=== PATIENT | female | born 1995 | race Caucasian/White ===

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

== ENCOUNTER 2017-03-08 17:43 | Emergency (ER) | payer BC ==
--- NOTE | 2017-03-08 17:58 | EDM.PDOC ---
ED HPI GENERAL MEDICAL PROBLEM - General Stated Complaint: ABDOMINAL PAIN Time Seen by Provider: 03/08/17 17:50 Source of Information: Reports: Patient History Limitations: Reports: No Limitations - History of Present Illness INITIAL COMMENTS - FREE TEXT/NARRATIVE: HISTORY AND PHYSICAL: Abdominal pain History of present illness: Patient is a 21-year-old female who presents to the emergency room today with complaints of left upper quadrant pain that started at noon today. She states over the past 6 weeks she has had to 4 episodes of similar pain which usually resolves on its own within a few hours. She has neglected to see a primary care provider for this pain as she is busy with college. Today her mother brought her in, she believes that this is her gallbladder. Mother reports that "I had the same symptoms when I needed a gallbladder out". Patient states the pain starts in the upper left quadrant and mildly radiates to the epigastrium and around to the left flank. She states this is not associated with food. States nothing makes the pain better or worse. She denies any nausea or vomiting. She does have intermittent diarrhea. Denies any blood in her stools. Denies any dysuria, frequency or difficulty starting her stream. Currently on menses, denies chance of . Has had an appendectomy. Has no history of any GI health conditions. Review of systems: As per history of present illness and below otherwise all systems reviewed and negative. Past medical history: As per history of present illness and as reviewed below otherwise noncontributory. Surgical history: As per history of present illness and as reviewed below otherwise noncontributory. Social history: No reported history of drug or alcohol abuse. Family history: As per history of present illness and as reviewed below otherwise noncontributory. Physical exam: Gen.: Nontoxic appearing 21-year-old female. Alert and oriented. Appears in no acute distress. HEENT: Atraumatic, normocephalic, pupils reactive, negative for conjunctival pallor or scleral icterus, mucous membranes moist, throat clear, neck supple, nontender, trachea midline. Lungs: Clear to auscultation, breath sounds equal bilaterally, chest nontender. Heart: S1S2, regular rate and rhythm with no overt murmurs Abdomen: Soft, nondistended, left upper quadrant tenderness with palpation. Patient is very thin. Negative for masses or hepatosplenomegaly. Negative for costovertebral tenderness. Pelvis: Stable nontender. Genitourinary: Deferred. Rectal: Deferred. Extremities: Atraumatic, negative for cords or calf pain. Neurovascular unremarkable. Neuro: Awake, alert, oriented. Cranial nerves II through XII unremarkable. Cerebellum unremarkable. Motor and sensory unremarkable throughout. Exam nonfocal. CT of the abdomen shows copious amounts of retained stool in the colon. The gallbladder is unremarkable. I did form the patient and mother of these findings. All labs that were done today are unremarkable. There were a few bacteria in the UA, a urine culture was sent. I informed them that if this comes back positive I will call her to give her a prescription for an antibiotic. We discussed using mag citrate, half a bottle tonight-and if no results finish the other half tomorrow. They may also use MiraLAX instead if they're more comfortable, although the results may take longer. If she should still have left upper quadrant pain that is intermittent, I informed her she needs to keep a diary to present to her primary care provider. She may need to see her primary doctor for further evaluation and workup. Patient and mother voiced understanding and are agreeable to plan of care. Denies any further questions at this time. Diagnostics: CBC, CMP, amylase, lipase, UA, urine , CT abdomen and pelvis Therapeutics: IV fluid, Toradol Impression: Abdominal pain Constipation Plan: 1. Please take a half bottle of Mag Citrate tonight. Please have a bathroom available in case you have results. If you do not have results you may take the other half of the bottle tomorrow. 2. If you continue to have abdominal pain please keep a symptom diary. You may need further workup of your symptoms through your primary care provider. A HIDA scan would further investigate the gallbladder, which is ordered through primary care. 3. Follow-up with your primary care provider in the next 1-2 days. Return to the ED as needed and as discussed. Definitive disposition and diagnosis as appropriate pending reevaluation and review of above. Onset: Today Duration: Hour(s): (Since noon), Chronic (On and off for 6 weeks) Location: Reports: Abdomen Associated Symptoms: Reports: Other (Diarrhea) Left Abdominal Pain Score (Numeric/FACES): 1 - Related Data Allergies Allergy/AdvReac Type Severity Reaction Status Date / Time No Known Allergies Allergy Verified 12/16/17 18:07 Home Meds: Home Meds . [No Known Home Meds] 03/08/17 [History] ED ROS GENERAL - Review of Systems Review Of Systems: ROS reveals no pertinent complaints other than HPI. ED EXAM, GI/ABD - Physical Exam Exam: See Below (See dictation) Course - Vital Signs Last Recorded V/S: Last Vital Signs Temp 97.7 F 03/08/17 19:30 Pulse 74 03/08/17 19:30 Resp 17 03/08/17 19:30 BP 130/67 03/08/17 19:30 Pulse Ox 100 03/08/17 19:30 - Orders/Labs/Meds Orders: Active Orders 24 hr Category Date Time Status Abdomen Pelvis w Cont [CT] Stat Exams 03/08/17 18:36 Taken CULTURE URINE [RM] Stat Lab 03/08/17 18:45 Received Labs: Laboratory Tests 03/08/17 03/08/17 03/08/17 Range/Units 18:24 18:24 18:45 WBC 6.11 (4.0-11.0) K/uL RBC 4.47 (4.30-5.90) M/uL Hgb 13.9 (12.0-16.0) g/dL Hct 40.4 (36.0-46.0) % MCV 90.4 (80.0-98.0) fL MCH 31.1 (27.0-32.0) pg MCHC 34.4 (31.0-37.0) g/dL RDW Std Deviation 42.7 (28.0-62.0) fl RDW Coeff of Agusto 13 (11.0-15.0) % Plt Count 201 (150-400) K/uL MPV 11.10 (7.40-12.00) fL Neut % (Auto) 59.6 (48.0-80.0) % Lymph % (Auto) 31.3 (16.0-40.0) % [place] % (Auto) 6.5 (0.0-15.0) % Eos % (Auto) 2.3 (0.0-7.0) % Baso % (Auto) 0.3 (0.0-1.5) % Neut # (Auto) 3.6 (1.4-5.7) K/uL Lymph # (Auto) 1.9 (0.6-2.4) K/uL [place] # (Auto) 0.4 (0.0-0.8) K/uL Eos # (Auto) 0.1 (0.0-0.7) K/uL Baso # (Auto) 0.0 (0.0-0.1) K/uL Nucleated RBC % 0.0 /100WBC Nucleated RBCs # 0 K/uL Sodium 139 (136-146) mmol/L Potassium 3.5 (3.5-5.1) mmol/L Chloride 106 (98-110) mmol/L Carbon Dioxide 22 (21-31) mmol/L BUN 12 (6.0-23.0) mg/dL Creatinine 0.7 (0.6-1.5) mg/dL Est Cr Clr Drug Dosing 116.32 mL/min Estimated GFR (MDRD) > 60.0 ml/min Glucose 86 (60-110) mg/dL Calcium 9.8 (8.8-10.8) mg/dL Total Bilirubin 0.7 (0.1-1.5) mg/dL AST 17 (5-40) IU/L ALT 13 (8-54) IU/L Alkaline Phosphatase 66 (40-150) Total Protein 7.5 (6.0-8.0) g/dL Albumin 4.8 (3.5-5.0) g/dL Globulin 2.7 (2.0-3.5) g/dL Albumin/Globulin Ratio 1.8 (1.3-2.8) Amylase 60 (10-90) U/L Lipase 23 (7-80) U/L Urine Color Urine Appearance Urine pH (5.0-8.0) Ur Specific [place] (1.001-1.035) Urine Protein (NEGATIVE) mg/dL Urine Glucose (UA) (NEGATIVE) mg/dL Urine Ketones (NEGATIVE) mg/dL Urine Occult Blood (NEGATIVE) Urine Nitrite (NEGATIVE) Urine Bilirubin (NEGATIVE) Urine Urobilinogen (<2.0) EU/dL Ur Leukocyte Esterase (NEGATIVE) Urine RBC (0-2/HPF) Urine WBC (0-5/HPF) Ur Epithelial Cells (NONE-FEW) Urine Bacteria (NEGATIVE) Urine HCG, Qual NEGATIVE (NEGATIVE) 03/08/17 Range/Units 18:45 WBC (4.0-11.0) K/uL RBC (4.30-5.90) M/uL Hgb (12.0-16.0) g/dL Hct (36.0-46.0) % MCV (80.0-98.0) fL MCH (27.0-32.0) pg MCHC (31.0-37.0) g/dL RDW Std Deviation (28.0-62.0) fl RDW Coeff of Agusto (11.0-15.0) % Plt Count (150-400) K/uL MPV (7.40-12.00) fL Neut % (Auto) (48.0-80.0) % Lymph % (Auto) (16.0-40.0) % [place] % (Auto) (0.0-15.0) % Eos % (Auto) (0.0-7.0) % Baso % (Auto) (0.0-1.5) % Neut # (Auto) (1.4-5.7) K/uL Lymph # (Auto) (0.6-2.4) K/uL [place] # (Auto) (0.0-0.8) K/uL Eos # (Auto) (0.0-0.7) K/uL Baso # (Auto) (0.0-0.1) K/uL Nucleated RBC % /100WBC Nucleated RBCs # K/uL Sodium (136-146) mmol/L Potassium (3.5-5.1) mmol/L Chloride (98-110) mmol/L Carbon Dioxide (21-31) mmol/L BUN (6.0-23.0) mg/dL Creatinine (0.6-1.5) mg/dL Est Cr Clr Drug Dosing mL/min Estimated GFR (MDRD) ml/min Glucose (60-110) mg/dL Calcium (8.8-10.8) mg/dL Total Bilirubin (0.1-1.5) mg/dL AST (5-40) IU/L ALT (8-54) IU/L Alkaline Phosphatase (40-150) Total Protein (6.0-8.0) g/dL Albumin (3.5-5.0) g/dL Globulin (2.0-3.5) g/dL Albumin/Globulin Ratio (1.3-2.8) Amylase (10-90) U/L Lipase (7-80) U/L Urine Color YELLOW Urine Appearance CLEAR Urine pH 6.5 (5.0-8.0) Ur Specific [place] 1.015 (1.001-1.035) Urine Protein NEGATIVE (NEGATIVE) mg/dL Urine Glucose (UA) NEGATIVE (NEGATIVE) mg/dL Urine Ketones NEGATIVE (NEGATIVE) mg/dL Urine Occult Blood SMALL H (NEGATIVE) Urine Nitrite NEGATIVE (NEGATIVE) Urine Bilirubin NEGATIVE (NEGATIVE) Urine Urobilinogen 0.2 (<2.0) EU/dL Ur Leukocyte Esterase NEGATIVE (NEGATIVE) Urine RBC 2-6 (0-2/HPF) Urine WBC 0-1 (0-5/HPF) Ur Epithelial Cells OCCASIONAL (NONE-FEW) Urine Bacteria FEW (NEGATIVE) Urine HCG, Qual (NEGATIVE) Meds: Medications Discontinued Medications Generic Name Dose Route Start Last Admin Trade Name Freq PRN Reason Stop Dose Admin Sodium Chloride 1,000 mls @ 999 mls/hr 03/08/17 18:11 03/08/17 18:39 Normal Saline IV 03/08/17 19:11 999 mls/hr STAT ONE Administration Iopamidol 70 ml 03/08/17 18:54 03/08/17 19:31 Isovue Multipack-370 (76%) IVPUSH 03/08/17 18:55 70 ml ONETIME STA Administration Ketorolac Tromethamine 30 mg 03/08/17 18:11 03/08/17 18:40 Toradol IVPUSH 03/08/17 18:12 30 mg ONETIME ONE Administration Departure - Departure Time of Disposition: 20:05 Disposition: Home, Self-Care 01 Clinical Impression: Constipation Qualifiers: Constipation type: unspecified constipation type Qualified Code(s): K59.00 - Constipation, unspecified Abdominal pain Qualifiers: Abdominal location: left upper quadrant Qualified Code(s): R10.12 - Left upper quadrant pain - Discharge Information Instructions: Constipation, Adult, [id number], Abdominal Pain, Adult, Easy-to -Read Referrals: PCP,Unknown [Primary Care Provider] - Additional Instructions: My general discharge The following information is given to patients seen in the emergency department who are being discharged to home. This information is to outline your options for follow-up care. We provide all patients seen in our emergency department with a follow-up referral. The need for follow-up, as well as the timing and circumstances, are variable depending upon the specifics of your emergency department visit. If you don't have a primary care physician on staff, we will provide you with a referral. We always advise you to contact your personal physician following an emergency department visit to inform them of the circumstance of the visit and for follow-up with them and/or the need for any referrals to a consulting specialist. The emergency department will also refer you to a specialist when appropriate. This referral assures that you have the opportunity for follow-up care with a specialist. All of these measure are taken in an effort to provide you with optimal care, which includes your follow-up. Under all circumstances we always encourage you to contact your private physician who remains a resource for coordinating your care. When calling for follow-up care, please make the office aware that this follow-up is from your recent emergency room visit. If for any reason you are refused follow-up, please contact the [facility] Emergency Department at and asked to speak to the emergency department charge nurse. [facility] Primary Care [address] [place] [address] 1. Please take a half bottle of Mag Citrate tonight. Please have a bathroom available in case you have results. If you do not have results you may take the other half of the bottle tomorrow. 2. If you continue to have abdominal pain please keep a symptom diary. You may need further workup of your symptoms through your primary care provider. A HIDA scan would further investigate the gallbladder, which is ordered through primary care. 3. Follow-up with your primary care provider in the next 1-2 days. Return to the ED as needed and as discussed. - My Orders Last 24 Hours: My Active Orders 03/08/17 18:36 Abdomen Pelvis w Cont [CT] Stat 03/08/17 18:45 CULTURE URINE [RM] Stat - Assessment/Plan Last 24 Hours: My Active Orders 03/08/17 18:36 Abdomen Pelvis w Cont [CT] Stat 03/08/17 18:45 CULTURE URINE [RM] Stat
[2017-03-08] MEDS ORDERED: Ketorolac 30 MG/ML SDV IVPUSH ONE (18:11)
[2017-03-08] MEDS ORDERED: Sodium Chloride 0.9% 1,000 ML IV ONE (18:11)
[2017-03-08 18:53] LABS: CHLORIDE,CL 106 mmol/L (98-110); SODIUM,NA 139 mmol/L (136-146)
[2017-03-08] MEDS ORDERED: Iopamidol 755 MG/ML 500 ML Multipack Bottle IVPUSH STA (18:54)
--- NOTE | 2017-03-10 14:18 | CT ---
EXAM DATE: 03/08/17 PATIENT'S AGE: 21 Patient: BERNARDA SILVESTRE Facility: [place], [place] Site . Site : 1995 Study: CT Abdomen/Pelvis [id number]/[id number] 7:30:29 PM Ordering Physician: Doctor Clifton Final Report: INDICATION: Left-sided abdominal pain. Comparison: Unenhanced CT abdomen and pelvis March 04, 2011. Technique: CT abdomen and pelvis with intravenous contrast; no oral contrast; coronal and sagittal reformats. Findings: No abnormal intra pulmonary nodular densities through the lung bases. No evidence of pleural effusion. Normal size cardiac silhouette without any evidence of pericardial effusion. No focal hepatic or splenic pathology. No pancreatic pathology. Gallbladder is unremarkable. No adrenal pathology. No kidney stones or obstructive uropathy. Symmetric perfusion of both the kidneys without any obstructive uropathy or perinephric pathology. No retroperitoneal lymphadenopathy. No evidence of abdominal or pelvic ascites. No pneumoperitoneum. No evidence of intestinal obstruction. CT study of the pelvis is unremarkable. The appendix is not clearly visualized; no inflammatory changes identified in the right lower quadrant of the abdomen. Copious amounts of retained stool throughout the colon. Impression: 1. Copious amounts of retained stool in the colon. 2. Appendix is not clearly visualized; no inflammatory changes in the right lower quadrant of the abdomen. 3. Negative CT abdomen and pelvis with intravenous contrast otherwise. Please note that all CT scans at this facility use dose modulation, iterative reconstruction, and/or weight-based dosing when appropriate to reduce radiation dose to as low as reasonably achievable. Dictated by Leyla Betts MD @ Mar 08 2017 7:50PM (Electronic Signature) Report Signed by Proxy. [facility]ITAL[facility]ardo
== END 2017-03-08 20:26 | disposition home or self-care (01) ==
LOC: MW.ED 17:43
DX: K59.00 Constipation, unspecified (principal)
CPT/HCPCS: 36415; 74177; 80053; 81001; 81025; 82150; 83690; 85025; 87086; 96361; 96374; 99284; J1885; J7040; Q9967